=== PATIENT | male | born 1980 | race Hispanic/Latino ===

== ENCOUNTER 2025-06-01 20:31 | Emergency (ER) | payer OTHER ==
[~2025-06-01] VITALS: Ht 180.3 cm; Wt 101.2 kg
[2025-06-01 21:08] VITALS: PULSE 69; RESP 18; TEMP 98
[2025-06-01] MEDS: TETANUS/DIPHTHERIA TOX ADULT 0.5 ML SYR IM ONE (21:38)
[2025-06-01 21:42] VITALS: BP 132/78; PULSE 69; RESP 18; TEMP 98; O2SAT 97
== END 2025-06-01 21:42 | disposition home or self-care (01) ==
LOC: FSED 21:28
DX: S90.411A Abrasion, right great toe, initial encounter (principal); W22.09XA Striking against other stationary object, initial encounter; Y93.01 Activity, walking, marching and hiking; Y92.89 Other specified places as the place of occurrence of the external cause
CPT/HCPCS: 90471; 90714; 96372; 99282